=== PATIENT | male | born 1980 | race Two or more races ===

== ENCOUNTER 2024-03-31 21:08 | Emergency (ER) | payer SELFPAY ==
[~2024-03-31] VITALS: Ht 185.4 cm; Wt 87.0 kg
[2024-03-31 21:13] VITALS: BP 137/87; PULSE 103; RESP 20; TEMP 98.1; O2SAT 95
== END 2024-04-01 00:09 | disposition left against medical advice (07) ==
LOC: ER 21:08
DX: F10.129 Alcohol abuse with intoxication, unspecified (principal); F19.90 Other psychoactive substance use, unspecified, uncomplicated; Y90.9 Presence of alcohol in blood, level not specified
CPT/HCPCS: 99283